=== PATIENT | female | born 2000 | race Caucasian/White ===

== ENCOUNTER 2021-11-27 09:27 | Emergency (ER) | payer OTHER, SELFPAY ==
[2021-11-27] VITALS (8 sets, daily range): BP systolic 112–125; BP diastolic 56–73; PULSE 109–136; RESP 20–26; TEMP 36.7–36.8; O2SAT 97–99; BMI 20.7
--- NOTE | 2021-11-27 09:29 | PC.NURSE ---
Seizure pads placed on bilateral bed rails.
--- NOTE | 2021-11-27 09:30 | PC.NURSE ---
Fingerstick 116
--- NOTE | 2021-11-27 09:32 | ECG_ITS ---
APPROVED REPORT Exam: Resting ECG HR:131 bpm ECG Measurements Heart Rate 131 AXES UT 144 P 75 QRSd 90 QRS 90 QT 334 T 65 QTc 411 Conclusion SINUS TACHYCARDIA NONSPECIFIC T-WAVE ABNORMALITY ABNORMAL RHYTHM ECG INTERPRETATION BASED ON A DEFAULT AGE OF 39 YEARS UNCONFIRMED REPORT Electronically signed by : Mitesh Jamison MD 11/27/2021 21:05:25
--- NOTE | 2021-11-27 09:34 | CT_ITS ---
FINAL REPORT TECHNIQUE: Thin section axial images were obtained from skull base to vertex without contrast. CLINICAL HISTORY: szr, ams FINDINGS: There is no mass effect or midline shift. There is no hydrocephalus. The ventricles are symmetric in size and configuration. There is no extra-axial or intraparenchymal hemorrhage. The posterior fossa is without acute abnormality. The basilar cisterns are preserved. The soft tissues are without acute abnormality. No acute osseous abnormality is identified. IMPRESSION: No acute intracranial abnormality. Reviewed, Interpreted and Dictated by Renata Rivers MD Transcribed by Vanna Park Authenticated and [facility]
--- NOTE | 2021-11-27 09:34 | HMH.EDSEIZ ---
ED Disposition Clinical Impression: SSRI (selective serotonin reuptake inhibitor) poisoning Qualifiers: Encounter type: initial encounter Injury intent: undetermined intent Qualified Code(s): T43.224A - Poisoning by selective serotonin reuptake inhibitors, undetermined, initial encounter Disposition: Xfer Short-Term Hosp Condition on Discharge: Good Referrals: Provider,Referral, [Primary Care Provider] - - Critical Care Critical Care Time: No Attestation: On , the high probability of a clinically significant, sudden or life threatening deterioration of the following system(s) required my full and direct attention, intervention and personal management. The time I documented below is in addition to time spent performing reported procedures but includes the following listed in this critical care notation. Medical Decision Making - Medical Records Medical records reviewed: Yes: I reviewed the patient's medical records. - Kale Inquiry Pt receiving controlled substance: No Vital Signs: 11/27/21 09:30 11/27/21 09:55 11/27/21 10:25 Temperature 98.2 F Temperature Source Oral Pulse Rate 126 H 122 H Pulse Rate [Left Radial] 136 H Respiratory Rate 21 26 H 24 Blood Pressure 117/56 L 117/63 Blood Pressure [Right Arm] 124/70 Blood Pressure Mean 78 73 Blood Pressure Mean [Right Arm] 88 02 Sat by Pulse Oximetry 97 97 97 Oxygen Delivery Method Room Air 11/27/21 10:55 11/27/21 11:26 11/27/21 11:55 Temperature Temperature Source Pulse Rate 118 H 109 H 124 H Pulse Rate [Left Radial] Respiratory Rate 20 Blood Pressure 112/73 121/71 125/72 Blood Pressure [Right Arm] Blood Pressure Mean 83 87 84 Blood Pressure Mean [Right Arm] 02 Sat by Pulse Oximetry 98 99 97 Oxygen Delivery Method 11/27/21 12:25 Temperature Temperature Source Pulse Rate 121 H Pulse Rate [Left Radial] Respiratory Rate Blood Pressure 123/69 Blood Pressure [Right Arm] Blood Pressure Mean 87 Blood Pressure Mean [Right Arm] 02 Sat by Pulse Oximetry 98 Oxygen Delivery Method Room Air - Lab Data Lab Results 11/27/21 09:27: WBC 13.5 H, RBC 4.42, Hgb 15.1, Hct 47.7 H, MCV 107.8 H, MCH 34.2 H, MCHC 31.7 L, RDW 13.6, Plt Count 319, MPV 8.9, Neut % (Auto) 68.7, Lymph % (Auto) 22.4, [place] % (Auto) 7.7, Eos % (Auto) 0.3, Baso % (Auto) 0.9, Neut # (Auto) 9.3 H, Lymph # (Auto) 3.0, [place] # (Auto) 1.0, Eos # (Auto) 0.0, Baso # (Auto) 0.1 11/27/21 09:27: Sodium 145, Potassium 3.4 L, Chloride 109 H, Carbon Dioxide 14 L, Anion Gap 25.4 H, BUN 12, Creatinine 0.90, Estimated GFR 78, Est GFR ( Amer) 95, Glucose 135 H, Calcium 9.1, Total Bilirubin 0.4, AST 34, ALT 28, Alkaline Phosphatase 82, Total Protein 7.9, Albumin 4.8, Globulin 3.1, Albumin/Globulin Ratio 1.5, Salicylates < 1.0 L, Acetaminophen < 10 L 11/27/21 09:27: Plasma/Serum Alcohol 62 H 11/27/21 09:27: Serum HCG, Qual Negative 11/27/21 10:10: Lactate 9.5 H 11/27/21 10:42: Specimen Source Left radial, O2 % Room air, ABG pH 7.45, ABG pCO2 18.7 L, ABG pO2 169.1 H, ABG HCO3 12.7 L, ABG Total CO2 13.3 L, ABG O2 Saturation 99, ABG Base Excess -11.2 L, Edmundo Test Acceptable Result diagrams: 11/27/21 09:27 11/27/21 09:27 Orders (Tests/Meds): ED MEDICATIONS Generic Name Dose Route Start Last Admin Trade Name Freq PRN Reason Stop Dose Admin Sodium Chloride 10 ml 11/27/21 12:51 Sodium Chloride 0.9% 10ml Vial IV 12/27/21 12:50 NEEDED PRN to Dilute Lorazepam inj Discontinued Medications Generic Name Dose Route Start Last Admin Trade Name Freq PRN Reason Stop Dose Admin Sodium Chloride 1,000 mls @ 999 mls/hr 11/27/21 09:45 11/27/21 09:39 Sod Chlor 0.9% 1000ml Bag IV 11/27/21 10:45 999 mls/hr .Q1H1M KEN Administration Ceftriaxone Sodium 1 gm/ 50 mls @ 100 mls/hr 11/27/21 10:00 11/27/21 10:19 Sodium Chloride IV 11/27/21 10:29 100 mls/hr ONCE ONE Administration Sodium Chloride 1,000 mls @ 999 mls/hr 11/27/21
--- NOTE | 2021-11-27 09:37 | PC.NURSE ---
Meds administered to pt per MD order. Pt provided with warm blanket and emesis bag. SO at bedside.
[2021-11-27 09:43] LABS: Basophils # 0.1 K/mm3 (0-0.2); Basophils % 0.9 % (0.1-2.0); Eosinophils % 0.3 % (0.1-12.0); Hematocrit 47.7 % (37.0-47.0); Hemoglobin 15.1 g/dL (12.2-16.2); Lymphocytes % 22.4 % (10-50); Mean Corpuscular HGB Conc 31.7 g/dL (31.8-35.4); Mean Corpuscular Hemoglobin 34.2 pg (27.0-31.2); Mean Corpuscular Volume 107.8 fl (81-99); Mean Platelet Volume 8.9 fl (7.4-10.4); Monocytes % 7.7 % (1.7-9.3); Neutrophils # 9.3 K/mm3 (1.8-7.8); Neutrophils % 68.7 % (37.0-80.0); Platelet Count 319 K/mm3 (142-424); Red Blood Count 4.42 M/mm3 (4.20-5.40); Red Cell Distribution Width 13.6 % (11.5-17.5); White Blood Count 13.5 K/mm3 (4.8-10.8)
[2021-11-27 09:48] LABS: Chloride 109 mmol/L (98-107); Potassium 3.4 mmoL/L (3.5-5.1); Sodium 145 mmol/L (136-145)
[2021-11-27 09:50] LABS: Blood Urea Nitrogen 12 mg/dl (7-17); Estimated Glomerular Filt Rate 78 ml/min (>60); GFR (African American) 95 ML/MIN (>60)
--- NOTE | 2021-11-27 09:50 | PC.NURSE ---
spoke with gilbert at poison control who states main concern is hypertension, seizures, tachycardia and airway support. states there is no antidote for medication and to observe pt for at least 24 hours post ingestion
[2021-11-27 09:51] LABS: Alanine Aminotransferase 28 U/L (12-78); Albumin Level 4.8 g/dl (3.5-5.0); Albumin/Globulin Ratio 1.5 (1.1-1.8); Alkaline Phosphatase 82 U/L (38-126); Anion Gap 25.4 mEq/L (5-15); Aspartate Amino Transferase 34 U/L (14-36); Bilirubin,Total 0.4 mg/dl (0.2-1.3); Calcium 9.1 mg/dl (8.4-10.2); Carbon Dioxide 14 mmol/L (22.0-30.0); Ethyl Alcohol 62 mg/dl (0-10); Globulin 3.1 g/dL (1.3-3.2); Glucose 135 mg/dl (74-100); Total Protein,Serum 7.9 g/dl (6.3-8.2)
[2021-11-27 09:52] LABS: Acetaminophen < 10 ug/ml (10-30); Salicylate < 1.0 mg/dL (2.0-20.0)
--- NOTE | 2021-11-27 09:54 | XR_ITS ---
FINAL REPORT CLINICAL HISTORY: sirs FINDINGS: A single PA view of the chest was obtained. There is no prior exam for comparison. The cardiac and mediastinal silhouettes are within normal limits. There evidence of granulomatous disease. Otherwise, the lungs are clear. There is no pleural effusion or pneumothorax. No acute osseous abnormality is identified. IMPRESSION: No radiographic evidence of acute cardiac or pulmonary disease on this single view of the chest. Reviewed, Interpreted and Dictated by Renata Rivers MD Transcribed by Vanna Park Authenticated and . [facility]
--- NOTE | 2021-11-27 10:20 | PC.NURSE ---
RT called and notified of abg order
--- NOTE | 2021-11-27 10:20 | PC.NURSE ---
pt placed on bedpan for urine sample
--- NOTE | 2021-11-27 10:27 | PC.NURSE ---
no success with urination. RT at the bedside for abg collection
--- NOTE | 2021-11-27 10:29 | PC.NURSE ---
RT at BS to collect ABG
--- NOTE | 2021-11-27 10:43 | HMH.ITSTN ---
SPOKE WITH STARR, UNABLE TO OBTAIN URINE FROM PATIENT FOR TEST, WILL ADD HCG SERUM TO BLOOD WORK.
--- NOTE | 2021-11-27 10:47 | PC.NURSE ---
notified lab of serum order, states approx 5 minutes until results
[2021-11-27 10:50] LABS: HCG Qualitative, Serum Negative (Negative)
[2021-11-27 10:54] LABS: Lactic Acid 9.5 mmol/L (0.7-2.1)
--- NOTE | 2021-11-27 10:54 | PC.NURSE ---
critical lab value of lactic 9.5 reported to
--- NOTE | 2021-11-27 10:55 | PC.NURSE ---
notified rad of negative preg test
--- NOTE | 2021-11-27 10:58 | PC.NURSE ---
spoke with RT about update on abg results. states they are having to re-run sample
[2021-11-27 10:59] LABS: ABG Base Excess -11.2 mmol/L (-2.4-2.3); ABG HCO3 12.7 mmhg (22.0-26.0); ABG Oxygen Saturation 99 % (90-100); ABG PH 7.45 mmol/L (7.35-7.45); ABG PO2 169.1 mmhg (80-100); ABG TCO2 13.3 mmhg (23-27)
--- NOTE | 2021-11-27 10:59 | PC.NURSE ---
pt to CT via stretcher
[2021-11-27 11:01] LABS: Allen's Test ACCEPTABLE; Oxygen ROOM AIR %; Source Left Radial
[2021-11-27 11:02] LABS: ABG PCO2 18.7 mmhg (35.0-45.0)
--- NOTE | 2021-11-27 11:04 | PC.NURSE ---
per RT pt CO2 on blood gas is 19, notified MATI ROSEN
--- NOTE | 2021-11-27 11:07 | PC.NURSE ---
pt return from CT via stretcher at this time
--- NOTE | 2021-11-27 11:31 | PC.NURSE ---
per MD request, [facility] hospitalist being contacted for phone consult
--- NOTE | 2021-11-27 11:45 | PC.NURSE ---
Dr. Anthony speaking with Dr. Trinh at this time, Hospitalist at [facility]
--- NOTE | 2021-11-27 11:52 | PC.NURSE ---
hospitalist at [facility] accepted pt to the icu
--- NOTE | 2021-11-27 12:02 | PC.NURSE ---
contacted radiology for a disc of pt images from todays visit, spoke with anel
--- NOTE | 2021-11-27 12:06 | PC.NURSE ---
speaking to pet house sitter at [facility]
--- NOTE | 2021-11-27 12:23 | PC.NURSE ---
called report to carmelina donnelly at [facility] for transfer
--- NOTE | 2021-11-27 12:42 | PC.NURSE ---
fan called now they need a covid back before transport
--- NOTE | 2021-11-27 12:44 | PC.NURSE ---
[facility] here to transport patient to [facility] ICU
[2021-11-27 12:51] LABS: Coronavirus 19, PCR Not Detected (NotDetected); Influenza A, PCR Not Detected (NotDetected); Influenza B, PCR Not Detected (NotDetected)
--- NOTE | 2021-11-27 13:09 | PC.NURSE ---
spoke with receiving nurse at [facility] and notified her transport for pt was already here d/t informing pt was clear to send. asked if i could call her with results. she states that is fine.
[2021-11-27 14:20] LABS: Reflex Lactic Add Lactic Reflex
== END 2021-11-27 13:09 | disposition short-term general hospital (02) ==
PROVIDERS: Emergency Provider Emergency Medicine
DX: T43.224A Poisoning by selective serotonin reuptake inhibitors, undetermined, initial encounter (principal)
CPT/HCPCS: 70450; 71045; 80053; 80329; 82803; 83605; 84703; 85025; 87040; 93005; 96365; 96366; 96367; 96375; 99284; C9803; J0696; J2405; U0003; U0005

== ENCOUNTER 2022-08-10 21:58 | Emergency (ER) | payer BC, SELFPAY ==
[2022-08-10 22:22] VITALS: BP 116/72; PULSE 89; RESP 14; TEMP 36.8; O2SAT 99; BMI 21.0
[2022-08-10 22:45] LABS: Basophils % 0.2 % (0.1-2.0); Eosinophils # 0.1 K/mm3 (0.0-0.4); Eosinophils % 0.9 % (0.1-12.0); Hematocrit 47.6 % (37.0-47.0); Hemoglobin 15.8 g/dL (12.2-16.2); Lymphocytes # 2.7 K/mm3 (0.7-4.5); Lymphocytes % 19.1 % (10-50); Mean Corpuscular HGB Conc 33.1 g/dL (31.8-35.4); Mean Corpuscular Hemoglobin 33.8 pg (27.0-31.2); Mean Corpuscular Volume 102.1 fl (81-99); Mean Platelet Volume 8.5 fl (7.4-10.4); Monocytes # 0.7 K/mm3 (0.1-1.0); Monocytes % 4.9 % (1.7-9.3); Neutrophils # 10.5 K/mm3 (1.8-7.8); Neutrophils % 74.8 % (37.0-80.0); Platelet Count 294 K/mm3 (142-424); Red Blood Count 4.66 M/mm3 (4.20-5.40); Red Cell Distribution Width 13.4 % (11.5-17.5)
[2022-08-10 22:48] LABS: Chloride 105 mmol/L (98-107); Sodium 139 mmol/L (136-145)
[2022-08-10 22:50] LABS: Alanine Aminotransferase 18 U/L (12-78); Aspartate Amino Transferase 25 U/L (14-36); Blood Urea Nitrogen 10 mg/dl (7-17); Creatinine Clearance Estimated 90 mL/min (50-200); Estimated Glomerular Filt Rate 89 ml/min (>60); GFR (African American) 108 ML/MIN (>60)
[2022-08-10 22:51] LABS: Albumin Level 4.7 g/dl (3.5-5.0); Albumin/Globulin Ratio 1.5 (1.1-1.8); Alkaline Phosphatase 93 U/L (38-126); Bilirubin,Total 0.5 mg/dl (0.2-1.3); Carbon Dioxide 25 mmol/L (22.0-30.0); Globulin 3.2 g/dL (1.3-3.2); Glucose 84 mg/dl (74-100); Total Protein,Serum 7.9 g/dl (6.3-8.2)
[2022-08-10 22:55] LABS: HCG Qualitative, Serum Negative (Negative)
--- NOTE | 2022-08-10 23:57 | HMH.EDNVD ---
Discharge Plan Disposition Patient Disposition: Home, Self-Care Prescriptions Prescriptions: New pantoprazole [Protonix] 40 mg tablet,delayed release (DR/EC) 40 mg PO ONCE 28 Days Qty: 28 0RF Referrals Follow up/Referrals: Provider,Referral, [Primary Care Provider] - See instructions Clinical Impressions Clinical Impression: Gastritis Instructions Patient Instructions: DI for Gastritis Discharge ED Provider: Shanti (ED)Luciano Nausea/Vomiting/Diarrhea HPI General Chief complaint: Nausea/Vomiting/Diarrhea Stated complaint: Vomitting Blood Time Seen by Provider: 08/10/22 23:57 Mode of Arrival: Ambulatory Source of Information: Patient and Medical Record Limitations: No Limitations Description of Symptoms (Recalled from ER Triage Doc. by RN): Pt reports drinking a nasty beer and throwing up blood clots at aprox 7:30pm tonight. Pt reports only 1 episode of emesis and denies any other complaints. No recent illnesses. Pt does report a miscarriage a couple weeks ago and she has been drinking heavily this week but that isn't her norm for her. Pt is well appearing and in no acute distress. History of Present Illness HPI Narrative: pt with etoh and vomiting blood and clots tonight - no sob or pain - pt reports no melena - recent miscarriage denied now MD complaint: nausea and vomiting Onset (ago): hour(s) Description of Vomiting: bloody and coffee grounds Associated Abdominal Pain: No Consistency: now resolved Related Data Previous Rx's Medication Instructions Recorded pantoprazole 40 mg tablet,delayed 40 mg PO ONCE 4 weeks #28 tabs 08/11/22 release (Protonix) Allergies Allergy/AdvReac Type Severity Reaction Status Date / Time No Known Allergies Allergy Verified 11/27/21 09:38 [facility] Disclaimer: The information contained in this section may have been updated after the patient was seen, as this information can be updated by other users. Social History Smoking Status: Current every day smoker alcohol intake: current current occupational status: employed Travel in the last 8 weeks: None ROS Obtained: Yes All systems reviewed & no additional complaints except as documented Physical Exam General General appearance: alert Head Head exam: normocephalic Eye Eye exam: Present PERRL and EOMI; Absent scleral icterus ENT ENT exam: Present mucous membranes moist Neck Neck exam: Present trachea midline; Absent tenderness Respiratory Respiratory exam: Present normal lung sounds bilaterally; Absent respiratory distress Cardiovascular Cardiovascular exam: Present regular rate; Absent systolic murmur Abdominal Exam Abdominal exam: Present soft; Absent tenderness, guarding or rebound Extremities Exam Extremities exam: Present full ROM Neurological Exam Neurological exam: Present alert, oriented X3 and CN II-XII intact; Absent motor sensory deficit Psychiatric Psychiatric exam: Present normal affect Skin Skin exam: Absent rash Medical Decision Making Medical Records Medical records reviewed: Yes I reviewed the patient's medical records. Kale Inquiry Pt receiving controlled substance: No Vital Signs: 08/10/22 22:22 Temperature 98.2 F Temperature Source Oral Pulse Rate [Right Radial] 89 Respiratory Rate 14 Blood Pressure [Right Arm] 116/72 Blood Pressure Mean [Right Arm] 86 Blood Pressure Source [Right Arm] Automatic Cuff Blood Pressure Position [Right Arm] Sitting 02 Sat by Pulse Oximetry 99 Oxygen Delivery Method Room Air Lab Data Lab results reviewed: Yes I reviewed the patient's lab results. Lab Results 08/10/22 22:35: WBC 14.0 H, RBC 4.66, Hgb 15.8, Hct 47.6 H, MCV 102.1 H, MCH 33.8 H, MCHC 33.1, RDW 13.4, Plt Count 294, MPV 8.5, Neut % (Auto) 74.8, Lymph % (Auto) 19.1, [place] % (Auto) 4.9, Eos % (Auto) 0.9, Baso % (Auto) 0.2, Neut # (Auto) 10.5 H, Lymph # (Auto) 2.7, [place] # (Auto) 0.7, Eos # (Auto) 0.1, Baso # (Auto) 0.0 08/10/22 22:35: Sodium 1
[2022-08-11 00:09] VITALS: BP 126/75; PULSE 89; RESP 16; TEMP 36.9; O2SAT 98
== END 2022-08-11 00:18 | disposition home or self-care (01) ==
PROVIDERS: Emergency Provider Emergency Medicine
DX: K29.61 Other gastritis with bleeding (principal); F17.200 Nicotine dependence, unspecified, uncomplicated
CPT/HCPCS: 80053; 84703; 85025; 96360; 96374; 99284; 99285; J2405

== ENCOUNTER 2023-03-04 13:02 | Emergency (ER) | payer BC, SELFPAY ==
[2023-03-04 13:04] VITALS: BP 139/77; PULSE 106; RESP 16; TEMP 36.8; O2SAT 98; BMI 24.4
[2023-03-04 13:11] VITALS: BMI 24.4
--- NOTE | 2023-03-04 13:12 | XR_ITS ---
FINAL REPORT CLINICAL HISTORY: injury, fell and caught self with hand FINDINGS: Left hand Three views were obtained. There is an oblique fracture of the 2nd middle phalanx with mild overlapping of fracture fragments. There is soft tissue swelling of the 2nd digit. IMPRESSION: Fracture as above. Reviewed, Interpreted and Dictated by Feliciano Duckworth III, MD Transcribed by Sade Swanson Authenticated and [facility]
--- NOTE | 2023-03-04 13:28 | HMH.EDGENADL ---
Discharge Plan Disposition Patient Disposition: Home, Self-Care Chief Complaint: Extremity Injury, Upper Prescriptions Prescriptions: No Action pantoprazole [Protonix] 40 mg tablet,delayed release (DR/EC) 40 mg PO ONCE 28 Days Qty: 28 0RF Referrals Follow up/Referrals: Venice Garcia DO [Primary Care Provider] - See instructions Trey Carroll DO [Staff Physician] - See instructions Activity Restrictions/Add. Instructions Additional Instructions/Restrictions: Call your family doctor to establish care for this visit to the emergency department and schedule follow-up within 48 hours to ensure improvement. If you have any worsening of your condition or any other concerning signs or symptoms, return to the emergency department or your primary care doctor for further evaluation. Call Dr. Carroll's office today, or tomorrow 03/05 to schedule follow-up appointment. Clinical Impressions Clinical Impression: Finger fracture, left Discharge ED Provider: Terence Wallis General Adult HPI General Chief complaint: Extremity Injury, Upper Stated complaint: [id number], pain in Lt index finger Time Seen by Provider: 03/04/23 13:06 Mode of Arrival: Ambulatory Source of Information: Patient Limitations: No Limitations Description of Symptoms (Recalled from ER Triage Doc. by RN): Presents to ED with c/o left index finger pain/swelling that began yesterday after tripping and trying to catch her self. Notable swelling and bruising o the finger. Cap refill <2sec. Patient does have feeling in the finger. Denies meds [employer] History of Present Illness HPI narrative: 23-year-old female no relevant medical history presenting with left hand injury. Patient states that she was walking about 12 hours prior to arrival, tripped, try to catch herself with her left hand. Jammed her left pointer finger. Moderate pain, swelling, bruising. She can still feel it and extend it, having difficulty bending it secondary to swelling and pain. No other trauma was sustained. Took Motrin, but it did not help much. Related Data Previous Rx's Medication Instructions Recorded pantoprazole 40 mg tablet,delayed 40 mg PO ONCE 4 weeks #28 tabs 08/11/22 release (Protonix) Allergies Allergy/AdvReac Type Severity Reaction Status Date / Time No Known Allergies Allergy Verified 11/27/21 09:38 [facility] Disclaimer: The information contained in this section may have been updated after the patient was seen, as this information can be updated by other users. Social History (Updated 08/11/22 @ 00:05 by Luciano LINN)MD) Smoking Status: Current every day smoker alcohol intake: current current occupational status: employed Travel in the last 8 weeks: None ROS Obtained: Yes All systems reviewed & no additional complaints except as documented Physical Exam General General appearance: alert and in no apparent distress Head Head exam: atraumatic and normocephalic Eye Eye exam: Present normal appearance, PERRL and EOMI ENT ENT exam: Present mucous membranes moist Neck Neck exam: Present normal inspection, full ROM and trachea midline Respiratory Respiratory exam: Absent respiratory distress, wheezes, stridor, accessory muscle use or prolonged expiratory phase Cardiovascular Cardiovascular exam: Present regular rate and normal rhythm Abdominal Exam Abdominal exam: Present soft; Absent distention, tenderness, guarding, rebound, rigidity or normal bowel sounds Extremities Exam Extremities exam: Present other (Multiple healing cuts on forearms from previous self-injurious behavior. Patient has swelling, tenderness, bruising left pointer finger. Neurovascularly intact. Minimal flexion, but full extension); Absent edema Neurological Exam Neurological exam: Present alert, oriented X3, CN II-XII intact and normal gait; Absent motor sensory deficit Skin Skin exam: Present warm and dry; Absent diaphoresis or erythema Medical Decision Making
--- NOTE | 2023-03-04 14:00 | PC.NURSE ---
@ BS with MD splinting patient.
[2023-03-04 14:37] VITALS: BP 113/78; PULSE 85; RESP 16; O2SAT 98
--- NOTE | 2023-03-04 14:41 | PC.NURSE ---
Radial Gutter splint applied by . +PMS
[2023-03-04 15:11] VITALS: BP 113/78; PULSE 85; RESP 16; TEMP 36.8; O2SAT 98
== END 2023-03-04 15:12 | disposition home or self-care (01) ==
PROVIDERS: Emergency Provider Emergency Medicine; PCP Student in an Organized Health Care Education/Training Program
DX: S62.621A Displaced fracture of middle phalanx of left index finger, initial encounter for closed fracture (principal); F17.210 Nicotine dependence, cigarettes, uncomplicated; W23.2XXA Caught, crushed, jammed or pinched between a moving and stationary object, initial encounter
CPT/HCPCS: 73130; 99283

== ENCOUNTER → 2023-04-01 13:46 | Outpatient (CLI) | payer BC, SELFPAY ==
--- NOTE | 2023-04-01 13:52 | XR_ITS ---
FINAL REPORT CLINICAL HISTORY: left hand and finger pain COMPARISON: 03/04/2023 FINDINGS: LEFT HAND Three views demonstrate a healing oblique fracture through the 2nd middle phalanx best seen on the lateral view. The visualized joint spaces are normally aligned. The soft tissues are unremarkable. IMPRESSION: Healing 2nd middle phalanx fracture. Reviewed, Interpreted and Dictated by Ty Elder MD Transcribed by Naye Pichardo Authenticated and . [facility]
== END ==
PROVIDERS: PCP Student in an Organized Health Care Education/Training Program; Visit Provider Orthopaedic Surgery
DX: S62.651A Nondisplaced fracture of middle phalanx of left index finger, initial encounter for closed fracture (principal)
CPT/HCPCS: 73130

== ENCOUNTER 2023-06-16 17:42 | Emergency (ER) | payer BC, SELFPAY ==
[2023-06-16 17:45] VITALS: BP 135/80; PULSE 90; RESP 18; TEMP 36.5; O2SAT 99; BMI 25.0
--- NOTE | 2023-06-16 17:55 | PC.NURSE ---
pt placed in hospital gown
--- NOTE | 2023-06-16 18:29 | PC.NURSE ---
DR BUCKLEY AT BEDSIDE
[2023-06-16 18:40] LABS: Microscopic, Urine URINE MICROSCOPIC (MICROSCOPIC)
[2023-06-16 18:41] LABS: Appearance,Urine CLEAR (Clear); Bilirubin,Urine Negative (Negative); Blood, Urine 2+ (Negative); Color,Urine YELLOW (Yellow); Glucose,Urine (UA) Negative (Negative); Ketones,Urine Negative (Negative); Leukocyte Esterase,Urine Negative (Negative); Nitrate,Urine Negative (Negative); Protein,Urine Negative (Negative); Specific Gravity, Urine <= 1.005 (1.005-1.030); Urobilinogen,Urine 0.2 EU/dl (0.2)
[2023-06-16 18:48] LABS: Urine Pregnancy, HCG Qual. Positive (Negative)
--- NOTE | 2023-06-16 18:58 | HMH.EDGENADL ---
Discharge Plan Disposition Patient Disposition: Home, Self-Care Prescriptions Prescriptions: No Action pantoprazole [Protonix] 40 mg tablet,delayed release (DR/EC) 40 mg PO ONCE 28 Days Qty: 28 0RF Referrals Follow up/Referrals: Shagufta Trevino DO [Staff Physician] - See instructions oGdwin Kirkpatrick [Primary Care Provider] - See instructions Activity Restrictions/Add. Instructions Additional Instructions/Restrictions: Follow-up with Dr. Trevino, information here. Discussed findings today with vaginal bleeding, positive test and low hCG at 147. Call your family doctor to establish care for this visit to the emergency department and schedule follow-up within 48 hours to ensure improvement. If you have any worsening of your condition or any other concerning signs or symptoms, return to the emergency department or your primary care doctor for further evaluation. Clinical Impressions Clinical Impression: Vaginal bleeding, Positive blood test Discharge ED Provider: Terence Wallis General Adult HPI General Chief complaint: Vaginal Bleeding Stated complaint: Heavy Menstrual Time Seen by Provider: 06/16/23 17:48 Mode of Arrival: Ambulatory Source of Information: Patient Limitations: No Limitations Description of Symptoms (Recalled from ER Triage Doc. by RN): Patient reports having a heavy menstrual cycle for 14 days. States her cycles are regular and never last this long. Patient states there are no clots it's just blood. History of Present Illness HPI narrative: 23-year-old female last menstrual period 14 days prior to this visit presenting with continued vaginal bleeding. 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 Has had difficulty getting these medications verified by insurance in the past. Does not currently follow with [facility]. Patient states that she is saturating about 3 tampons per day of dark red blood. No abdominal pain, nausea, vomiting, lightheadedness, shortness of breath, or any other concerns. Related Data Previous Rx's Medication Instructions Recorded pantoprazole 40 mg tablet,delayed 40 mg PO ONCE 4 weeks #28 tabs 08/11/22 release (Protonix) Allergies Allergy/AdvReac Type Severity Reaction Status Date / Time No Known Allergies Allergy Verified 04/01/23 14:23 [facility] Disclaimer: The information contained in this section may have been updated after the patient was seen, as this information can be updated by other users. Social History Smoking Status: Current every day smoker alcohol intake: current current occupational status: employed Travel in the last 8 weeks: None ROS Obtained: Yes All systems reviewed & no additional complaints except as documented Physical Exam General General appearance: alert and in no apparent distress Head Head exam: atraumatic and normocephalic Eye Eye exam: Present normal appearance, PERRL and EOMI ENT ENT exam: Present mucous membranes moist Neck Neck exam: Present normal inspection, full ROM and trachea midline Respiratory Respiratory exam: Absent respiratory distress, wheezes, stridor, accessory muscle use or prolonged expiratory phase Cardiovascular Cardiovascular exam: Present normal rhythm Abdominal Exam Abdominal exam: Present soft; Absent distention, tenderness, guarding, rebound or rigidity Speculum exam: Present vaginal bleeding and other (Cervical os closed) Extremities Exam Extremities exam: Absent edema Neurological Exam Neurological exam: Present alert, oriented X3, CN II-XII intact and normal gait; Absent motor sensory deficit Skin Skin exam: Present warm and dry; Absent diaphoresis or erythema Medical Decision Making Medical Records Medical records reviewed: Yes I reviewed the patient's medical records. Kale Inquiry Pt receiving controlled substance: No Kale was queried for this patient: No Vital Signs: 06/16/23 17:45 06/16/23 20:09 06/16/23 20:41 Temperature 97.7 F Temperature Source Oral Pulse Rate 67 86 Pulse Rate [Radial] 90 Respiratory Rate 18 Blood Pressure 119/68 121/69 Blood Pressure [Right Arm] 135/80 Blood Pressure Mean Blood Pressure Mean [Right Arm] 98 Blood Pressure Source [Right Arm] Automatic Cuff Blood Pressure Position [Right Arm] Sitting 02 Sat by Pulse Oximetry 99 97 99 Oxygen Delivery Method Room Air 06/16/23 21:20 06/16/23 21:40 06/16/23 22:08 Temperature 97.7 F Temperature Source Pulse Rate 69 69 67 Pulse Rate [Radial] Respiratory Rate 18 Blood Pressure 125/74 137/83 134/75 Blood Pressure [Right Arm] Blood Pressure Mean 90 101 Blood Pressure Mean [Right Arm] Blood Pressure Source [Right Arm] Blood Pressure Position [Right Arm] 02 Sat by Pulse Oximetry 98 99 Oxygen Delivery Method Lab Data Lab Results 06/16/23 17:50: Urine Color Yellow, Urine Appearance Clear, Urine pH 6.0, Ur Specific [place] <= 1.005, Urine Protein Negative, Urine Glucose (UA) Negative, Urine Ketones Negative, Urine Blood 2+, Urine Nitrate Negative, Urine Bilirubin Negative, Urine Urobilinogen 0.2, Ur Leukocyte Esterase Negative, Urine RBC 3-5, Urine WBC None, Ur Squamous Epith Cells Occasional, Urine Bacteria None, Urine HCG, Qual Positive 06/16/23 19:30: WBC 8.1, RBC 3.88 L, Hgb 14.4, Hct 39.3, MCV 101.3 H, MCH 37.2 H, MCHC 36.7 H, RDW 12.8, Plt Count 270, MPV 9.0, Neut % (Auto) 61.8, Lymph % (Auto) 30.6, [place] % (Auto) 7.0, Eos % (Auto) 0.4, Baso % (Auto) 0.3, Neut # (Auto) 5.0, Lymph # (Auto) 2.5, [place] # (Auto) 0.6, Eos # (Auto) 0.0, Baso # (Auto) 0.0, Sodium 136, Potassium 3.6, Chloride 107, Carbon Dioxide 24, Anion Gap 8.6, BUN 6 L, Creatinine 0.70, Estimated Creat Clear 114, Estimated GFR 103, Est GFR ( Amer) 124, Glucose 98, Calcium 8.8, Total Bilirubin 0.6, AST 31, ALT 26, Alkaline Phosphatase 80, Total Protein 7.2, Albumin 4.2, Globulin 3.0, Albumin/Globulin Ratio 1.4, HCG, Quant 147 H, Blood Type O Positive, Antibody Screen Negative 06/16/23 19:30 06/16/23 19:30 Orders (Tests/Meds): ORDERS Category Date Time Status Type and Screen Stat BBK 06/16/23 19:30 Completed POCUS Point of Care (ER Only) Stat Exams 06/16/23 18:32 Taken CMP [Comprehensive Metabolic Panel] Stat Lab 06/16/23 19:30 Completed Complete Blood Count Auto Diff Stat Lab 06/16/23 19:30 Completed HCG,Quantitative Stat Lab 06/16/23 19:30 Completed UA [Urinalysis and Microscopic] Stat Lab 06/16/23 17:50 Completed Urine , HCG Qual. Stat Lab 06/16/23 17:50 Completed Medical Decision Narrative: 23-year-old female last menstrual period 14 days prior to this visit presenting with continued vaginal bleeding. 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 Has had difficulty getting these medications verified by insurance in the past. Does not currently follow with [facility]. Patient states that she is saturating about 3 tampons per day of dark red blood. No abdominal pain, nausea, vomiting, lightheadedness, shortness of breath, or any other concerns. History was obtained via conversation with patient. On arrival, patient hemodynamically stable, alert, oriented x4, appropriate, GCS 15, moving all extremities spontaneously, pupils equal and reactive to light. Full physical exam performed and significant for well-appearing girl in no acute distress. No abdominal tenderness. Speculum exam with blood in the vaginal vault, cervical os is closed. Differential includes inevitable versus threatened , implantation bleeding, , among others. Workup independently interpreted and significant for a positive blood type, nonactionable CBC or chemistry. hCG elevated at 147. No evidence of UTI. It was explained to patient that ultrasound would be futile and likely not demonstrate any intrauterine findings this early with an hCG this low, but patient wanted ultrasound for peace of mind. Bedside ultrasound without any obvious intrauterine gestational sac. Mildly thickened endometrial stripe. No evidence of fibroids or free fluid in the abdomen. On reevaluation, patient resting comfortably in bed. Because patient not having abdominal cramping or any symptoms at this time, was deemed appropriate for outpatient management. Given information for [facility], she is agreeable to contacting them tomorrow, 06/17 for further follow-up. Given patient presentation, workup, history, this most likely represents vaginal bleeding in . Because patient at baseline without signs or symptoms of clinical decompensation, deemed appropriate for discharge. Results were relayed to patient who voiced understanding and were agreeable to outpatient management and follow up. At the time of discharge the patient was hemodynamically stable, tolerating PO, and mobilizing appropriately. Procedures Limited Ultrasound Indication:: Limited OB ultrasound Indication: Vaginal bleeding, positive test Identified structures: -Uterus -Left adnexa -Right adnexa -Pouch of [place] Findings: Uterus: No definitive IUP Right adnexa: -Normal Left adnexa: -Normal Cul de sac: -free fluid absent Impression: -IUP: Absent -Ectopic : Absent -Free fluid: Absent Images were saved to permanent archive The study was technically adequate CPT Transabdominal: 84227-47 This study was performed by me, and I personally interpreted all images/videos. Based on my clinical judgement, these images were adequate and did not necessitate further imaging. Critical Care Critical Care Time Critical Care Time: No
[2023-06-16 19:00] LABS: Squamous Epithelial Cell,Urine Occasional #/hpf (0-5)
--- NOTE | 2023-06-16 19:08 | PC.NURSE ---
PT AND FAMILY UPDATED, DRINK PROVIDED. CALL LIGHT WITHIN REACH
[2023-06-16 20:09] VITALS: BP 119/68; PULSE 67; O2SAT 97
[2023-06-16 20:15] LABS: Chloride 107 mmol/L (98-107); Sodium 136 mmol/L (136-145)
[2023-06-16 20:16] LABS: Potassium 3.6 mmoL/L (3.5-5.1)
[2023-06-16 20:18] LABS: Alanine Aminotransferase 26 U/L (12-78); Albumin Level 4.2 g/dl (3.5-5.0); Albumin/Globulin Ratio 1.4 (1.1-1.8); Alkaline Phosphatase 80 U/L (38-126); Anion Gap 8.6 mEq/L (5-15); Aspartate Amino Transferase 31 U/L (14-36); Bilirubin,Total 0.6 mg/dl (0.2-1.3); Blood Urea Nitrogen 6 mg/dl (7-17); Carbon Dioxide 24 mmol/L (22.0-30.0); Creatinine Clearance Estimated 114 mL/min (50-200); Estimated Glomerular Filt Rate 103 ml/min (>60); GFR (African American) 124 ML/MIN (>60); Total Protein,Serum 7.2 g/dl (6.3-8.2)
[2023-06-16 20:19] LABS: Calcium 8.8 mg/dl (8.4-10.2); Glucose 98 mg/dl (74-100)
[2023-06-16 20:33] LABS: Basophils % 0.3 % (0.1-2.0); Eosinophils % 0.4 % (0.1-12.0); Hematocrit 39.3 % (37.0-47.0); Hemoglobin 14.4 g/dL (12.2-16.2); Lymphocytes # 2.5 K/mm3 (0.7-4.5); Lymphocytes % 30.6 % (10-50); Mean Corpuscular HGB Conc 36.7 g/dL (31.8-35.4); Mean Corpuscular Hemoglobin 37.2 pg (27.0-31.2); Mean Corpuscular Volume 101.3 fl (81-99); Monocytes # 0.6 K/mm3 (0.1-1.0); Neutrophils % 61.8 % (37.0-80.0); Platelet Count 270 K/mm3 (142-424); Red Blood Count 3.88 M/mm3 (4.20-5.40); Red Cell Distribution Width 12.8 % (11.5-17.5); White Blood Count 8.1 K/mm3 (4.8-10.8)
[2023-06-16 20:40] LABS: HCG,Quantitative 147 mIU/ml (0-5.42)
[2023-06-16 20:41] VITALS: BP 121/69; PULSE 86; O2SAT 99
[2023-06-16 21:20] VITALS: BP 125/74; PULSE 69; O2SAT 98
[2023-06-16 21:40] VITALS: BP 137/83; PULSE 69; O2SAT 99
--- NOTE | 2023-06-16 21:50 | PC.NURSE ---
MD at bedside for vaginal exam
[2023-06-16 22:08] VITALS: BP 134/75; PULSE 67; RESP 18; TEMP 36.5; O2SAT 97
== END 2023-06-16 22:09 | disposition home or self-care (01) ==
PROVIDERS: Emergency Provider Emergency Medicine; PCP Family Medicine
DX: N93.9 Abnormal uterine and vaginal bleeding, unspecified (principal); Z32.01 Encounter for pregnancy test, result positive
CPT/HCPCS: 80053; 81001; 81025; 84702; 85025; 86850; 99284

== ENCOUNTER 2023-06-17 13:43 | Outpatient (CLI) | payer BC, SELFPAY ==
[2023-06-17 15:17] LABS: HCG,Quantitative 131 mIU/ml (0-5.42)
== END 2023-06-17 23:59 ==
PROVIDERS: PCP Family Medicine; Visit Provider Obstetrics & Gynecology
DX: O20.0 Threatened abortion (principal)
CPT/HCPCS: 36415; 84702; 86900; 86901

== ENCOUNTER 2023-06-23 15:52 | Outpatient (CLI) | payer BC, SELFPAY ==
[2023-06-23 17:24] LABS: HCG,Quantitative 142 mIU/ml (0-5.42)
== END 2023-06-23 23:59 ==
LOC: LAB 15:52
PROVIDERS: PCP Family Medicine; Visit Provider Obstetrics & Gynecology
DX: Z32.00 Encounter for pregnancy test, result unknown (principal)
CPT/HCPCS: 36415; 84702

== ENCOUNTER 2023-06-25 08:57 | Outpatient (CLI) | payer BC, SELFPAY ==
[2023-06-25 10:30] LABS: HCG,Quantitative 136 mIU/ml (0-5.42)
== END 2023-06-25 23:59 ==
LOC: LAB 08:57
PROVIDERS: PCP Family Medicine; Visit Provider Obstetrics & Gynecology
DX: Z34.90 Encounter for supervision of normal pregnancy, unspecified, unspecified trimester (principal)
CPT/HCPCS: 36415; 84702

== ENCOUNTER 2023-06-25 13:59 | Outpatient (CLI) | payer BC, SELFPAY ==
--- NOTE | 2023-06-25 14:02 | US_ITS ---
PROCEDURE: US TRANSVAGINAL CLINICAL INDICATION: Pos preg test,check viablility/tubal . COMPARISON: US POINT OF CARE US (ER ONLY) from 06/16/2023 FINDINGS: Transvaginal sonographic images of the pelvis were obtained. UTERUS: 6.8cm x 4.3cmx 3.5 cm with a combined endometrial thickness of 2.3mm. LEFT OVARY: 2.7 cmx1.5cmx1.4cm with a volume of 2.9ml. Small follicles in the left ovary. RIGHT OVARY: 3.5 cmx 1.6 cm. Adjacent to the right ovary there is a cystic mass measuring 2.2 cm. There is a ring of fire around this cystic mass. Possible ectopic . Both ovaries are seen and appear normal. Doppler flow to both ovaries are seen. There is no fluid in the cul-de-sac. IMPRESSION: 1. Anteverted uterus normal in shape and size. The endometrium is thin and there is no intrauterine . 2. The left ovary is seen and appears normal and has a few small follicles. 3. The right ovary is seen and appears normal. There are few small follicles in the right ovary. 4. Adjacent to the right ovary is a cystic mass measuring 2.1 cm. There is hypervascularity and a ring of fire. 5. Possible ectopic on the right side. 6. No fluid in the cul-de-sac. Dictated by: Jeremiah Dixon MD 06/25/2023 15:27 Jeremiah Dixon MD in OV 06/25/2023 15:27
== END 2023-06-25 23:59 ==
LOC: RAD 13:59
PROVIDERS: PCP Family Medicine; Visit Provider Obstetrics & Gynecology
DX: N96 Recurrent pregnancy loss (principal); Z32.01 Encounter for pregnancy test, result positive
CPT/HCPCS: 76830

== ENCOUNTER 2023-06-26 11:23 | Emergency (ER) | payer BC, SELFPAY ==
[2023-06-26 11:27] VITALS: BP 142/78; PULSE 80; RESP 18; TEMP 36.7; O2SAT 98; BMI 24.7
--- NOTE | 2023-06-26 11:36 | PC.NURSE ---
Dr. Olivier at BS for pt eval
--- NOTE | 2023-06-26 11:49 | HMH.EDGENADL ---
Discharge Plan Disposition Patient Disposition: Home, Self-Care Prescriptions Prescriptions: No Action No Known Home Medications Referrals Follow up/Referrals: Godwin Kirkpatrick [Primary Care Provider] - See instructions Activity Restrictions/Add. Instructions Additional Instructions/Restrictions: Please follow-up on Wednesday with Dr. Trevino for repeat ultrasound and labs. If new or worsening symptoms please not hesitate to return the emergency department. Clinical Impressions Clinical Impression: Ectopic Qualifiers: Location of ectopic : ovarian Intrauterine status: without intrauterine Laterality: right Qualified Code(s): O00.201 - Right ovarian without intrauterine Discharge ED Provider: Saw Olivier General Adult HPI General Chief complaint: OB/Uterine Contractions Stated complaint: ectopic , sent by Time Seen by Provider: 06/26/23 11:28 Mode of Arrival: Ambulatory Source of Information: Patient Limitations: No Limitations Description of Symptoms (Recalled from ER Triage Doc. by RN): possible ectopic History of Present Illness HPI narrative: Patient is a 23-year-old G9, P0 currently with suspected ectopic presents emergency department for evaluation. Last menstrual period was in May. She has been evaluated by Dr. Trevino where ultrasound is concerning for possible ectopic on the right side. Patient does have a history of ovarian cyst on the right side. She was offered medical management versus surgery at Dr. Trevino's office recently for which she declined. Fortunately patient has returned for continued evaluation. Patient has had intermittent abdominal pain on the left, no current abdominal pain. Related Data Home Medications Medication Instructions Recorded Confirmed No Known Home Medications 06/25/23 06/25/23 Allergies Allergy/AdvReac Type Severity Reaction Status Date / Time No Known Allergies Allergy Verified 06/25/23 15:01 [facility] Disclaimer: The information contained in this section may have been updated after the patient was seen, as this information can be updated by other users. Medical History History of recurrent miscarriages x 8, first trimester. First was age 18 No significant past medical history Surgical History History of loop electrical excision procedure (LEEP) Family History Other No significant family history Social History Smoking Status: Current every day smoker alcohol intake: current current occupational status: employed Travel in the last 8 weeks: None ROS Obtained: Yes Systems reviewed as appropriate & no additional complaints except as documented Physical Exam General General appearance: alert and in no apparent distress Head Head exam: atraumatic and normocephalic Eye Eye exam: Present PERRL ENT ENT exam: Present mucous membranes moist Neck Neck exam: Present normal inspection Chest Chest inspection: Present normal inspection and symmetric chest wall rise Respiratory Respiratory exam: Present normal lung sounds bilaterally; Absent respiratory distress Cardiovascular Cardiovascular exam: Present regular rate and normal rhythm Abdominal Exam Abdominal exam: Present soft; Absent tenderness Extremities Exam Extremities exam: Present normal inspection Neurological Exam Neurological exam: Present alert Psychiatric Psychiatric exam: Present normal affect Skin Skin exam: Present warm and dry Medical Decision Making Kale Inquiry Pt receiving controlled substance: No Vital Signs: 06/26/23 11:27 06/26/23 13:25 Temperature 98.1 F Temperature Source Oral Pulse Rate 75 Pulse Rate [Right Radial] 80 Respiratory Rate 18 Blood Pressure 114/58 L Blood Pressure [Right Arm] 142/78 H Blood Pressure Mean [Right Arm] 99 02 Sat by Pulse Oximetry 98 98 Oxygen Delivery Method Room Air Room Air Lab Data Lab Results 06/26/23 12:10: WBC 8.1, RBC 4.20, Hgb 14.6, Hct 44.3, MCV 105.4 H, MCH 34.8 H, MCHC 33.0, RDW 12.8, Plt Count 304, MPV 9.0, Neut % (Auto) 64.8, Lymph % (Auto) 25.8, [place] % (Auto) 8.6, Eos % (Auto) 0.6, Baso % (Auto) 0.3, Neut # (Auto) 5.2, Lymph # (Auto) 2.1, [place] # (Auto) 0.7, Eos # (Auto) 0.1, Baso # (Auto) 0.0, Sodium 136, Potassium 4.4, Chloride 107, Carbon Dioxide 23, Anion Gap 10.4, BUN 9, Creatinine 0.70, Estimated Creat Clear 116, Estimated GFR 103, Est GFR ( Amer) 124, Glucose 84, Calcium 8.9, Total Bilirubin 1.1, AST 44 H, ALT 29, Alkaline Phosphatase 55, Total Protein 8.2, Albumin 4.8, Globulin 3.4 H, Albumin/Globulin Ratio 1.4, HCG, Quant 110 H 06/26/23 12:10 06/26/23 12:10 Orders (Tests/Meds): ED MEDICATIONS Discontinued Medications Generic Name Dose Route Start Last Admin Trade Name Josh PRN Reason Stop Dose Admin Methotrexate 80 mg 06/26/23 12:45 06/26/23 13:00 Methotrexate Sodium 50mg/2ml Vial IM 06/26/23 12:46 80 mg ONCE ONE Administration ORDERS Category Date Time Status Type and Screen Stat BBK 06/26/23 12:10 Results POCUS Point of Care (ER Only) Stat Exams 06/26/23 11:32 Ordered CBC w/Auto Diff [Complete Blood Count Auto Diff] Stat Lab 06/26/23 12:10 Completed CMP [Comprehensive Metabolic Panel] Stat Lab 06/26/23 12:10 Completed HCG,Quantitative Stat Lab 06/26/23 12:10 Completed Medical Decision Narrative: In summary patient is a 23-year-old female with past medical history described above who presents emergency department for evaluation of suspected ectopic . Patient is hemodynamically stable nontoxic-appearing upon arrival, afebrile. Differential includes ovarian cyst, ectopic , ruptured ectopic , among others. Clinical ultrasound at bedside shows no free fluid in [place]'s pouch on the right or the subdiaphragmatic space on the left. Given vital signs with ultrasound I do not suspect that patient has ruptured ectopic at this time. Hematologic labs will be obtained. The case was discussed with OB on-call Dr. Trevino who will evaluate the patient. Quant hCG is 136. Shared decision-making discussion was had between patient and OB on-call Dr. Trevino, they will proceed with methotrexate this patient is a candidate at this time, dosing under the direction of pharmacy. Patient underwent methotrexate administration and was observed in the emergency department for approximately 30 minutes for monitoring for hypersensitivity reaction for which patient had no signs or symptoms. Given this patient is appropriate for discharge at this time we will follow-up with Dr. Trevino on an outpatient basis. Critical Care Critical Care Time Critical Care Time: No
--- NOTE | 2023-06-26 11:49 | PC.NURSE ---
DR MAYDA DIOR
--- NOTE | 2023-06-26 11:49 | PC.NURSE ---
DR SILVA SPEAKING WITH DR OHARA (OB)
--- NOTE | 2023-06-26 11:58 | PC.NURSE ---
LAB AT BEDSIDE FOR TYPE AND SCREEN
--- NOTE | 2023-06-26 12:10 | PC.NURSE ---
DR OHARA AT BEDSIDE
[2023-06-26 12:28] LABS: Basophils % 0.3 % (0.1-2.0); Eosinophils # 0.1 K/mm3 (0.0-0.4); Eosinophils % 0.6 % (0.1-12.0); Hematocrit 44.3 % (37.0-47.0); Hemoglobin 14.6 g/dL (12.2-16.2); Lymphocytes # 2.1 K/mm3 (0.7-4.5); Lymphocytes % 25.8 % (10-50); Mean Corpuscular Hemoglobin 34.8 pg (27.0-31.2); Mean Corpuscular Volume 105.4 fl (81-99); Monocytes # 0.7 K/mm3 (0.1-1.0); Monocytes % 8.6 % (1.7-9.3); Neutrophils # 5.2 K/mm3 (1.8-7.8); Neutrophils % 64.8 % (37.0-80.0); Platelet Count 304 K/mm3 (142-424); Red Cell Distribution Width 12.8 % (11.5-17.5); White Blood Count 8.1 K/mm3 (4.8-10.8)
--- NOTE | 2023-06-26 12:34 | P.CONS_ITS ---
History of Present Illness *Admission Date: 06/26/23 *Reason for visit:: Ectopic *History of present illness: Olga presents with her mom and significant other to discuss management options of suspected ectopic . She denies any pelvic cramping or bleeding. Of note, she has have several SABs, pt reports 8. She desires an evaluation for recurrent SAB. We have followed her BHCG values since 06/16: 147. 2: 131. 2: 142. 2/: 136. They have been stagnant for the last 10 days. Surgical hx: [place] teeth and LEEP Allergies: NKDA Reviewed TVUS again: IMPRESSION: 1. Anteverted uterus normal in shape and size. The endometrium is thin and there is no intrauterine . 2. The left ovary is seen and appears normal and has a few small follicles. 3. The right ovary is seen and appears normal. There are few small follicles in the right ovary. 4. Adjacent to the right ovary is a cystic mass measuring 2.1 cm. There is hypervascularity and a ring of fire. 5. Possible ectopic on the right side. 6. No fluid in the cul-de-sac. [facility] Disclaimer: The information contained in this section may have been updated after the patien jerrica was seen, as this information can be updated by other users. Medical History History of recurrent miscarriages x 8, first trimester. First was age 18 No significant past medical history Surgical History History of loop electrical excision procedure (LEEP) Family History Other No significant family history Social History Smoking Status: Current every day smoker alcohol intake: current current occupational status: employed Travel in the last 8 weeks: None Review of Systems Review of Systems Review of systems (narrative): Review of Systems Constitutional: Denies fever, chills, and sweats Eyes: Denies vision change/ pain Respiratory: Denies cough and shortness of breath Cardiovascular: Denies chest pain and lightheadedness Gastrointestinal: Denies abdominal pain. Denies nausea, vomiting. Genitourinary: Denies dysuria and incontinence Musculoskeletal: Denies shoulder pain and back pain Neurological: Denies change in speech or headaches Meds Home Medications and Allergies Home Medications Medication Instructions Recorded Confirmed Type No Known Home Medications 06/25/23 06/25/23 History New Prescriptions to Start Prescriptions: Allergies Allergy/AdvReac Type Severity Reaction Status Date / Time No Known Allergies Allergy Verified 06/25/23 15:01 Exam (Inpt) Vital signs and Labs for Last 24 Hours: Temp Pulse Resp BP Pulse Ox O2 Del Method 98.1 F 80 18 142/78 H 98 Room Air 06/26/23 11:27 06/26/23 11:27 06/26/23 11:27 06/26/23 11:27 06/26/23 11:27 06/26/23 11:27 I & O for Labs for Last 24 Hours: Intake & Output 06/23/23 06/24/23 06/25/23 06/26/23 23:59 23:59 23:59 23:59 Weight 131 lb Constitutional: no acute distress, average body habitus and cooperative HEENT Head: Present normocephalic and atraumatic ENT: Present normal exam and mucous membranes dry Neck: Present normal inspection and full ROM Respiratory: Present CTA bilaterally, normal respiratory effort, able to speak in complete sentences and symmetric chest movement; Absent accessory muscle use, prolonged expiratory phase, respiratory distress, stridor, wheezes, crackles or diminished air movement Cardiac: Present Reg Rate and Rhythm, S1/S2 and No Murmur; Absent Tachycardia or Bradycardia GI: Present soft and normal bowel sounds; Absent distention, tenderness, guarding, rebound, obturator sign or heel tap sign Rectal (female): Present deferred Extremities: Present normal inspection, full ROM and normal capillary refill; Absent tenderness, edema or calf tenderness Skin: Present intact; Absent erythema or dry Assessment and Plan *Assessment and plan (1) Ectopic : Status: Acute Qualifiers: Location of ectopic : ovarian Intrauterine status: without intrauterine Laterality: right Qualified Code(s): O00.201 - Right ovarian without intrauterine Category: Medical Code(s): O00.90 - Unspecified ectopic without intrauterine Plan Reviewed contraindications with the patient: -Patient does not have an intrauterine , there is no evidence of any immunodeficiency, she does not have anemia, she has no pulmonary disease, no active peptic ulcer disease, no hepatic or renal dysfunction, patient is not breast-feeding, she is hemodynamically stable and I do not believe her ectopic to be ruptured, and the patient is agreeable to follow-up. Her initial hCG is very low at less than 150. There is no cardiac activity detected. Her ectopic is less than 4 cm at 2 cm. The patient accepts blood transfusion. We reviewed the risks of medical management to include Hypersensitivity reaction, increased skin sensitivity, nausea and vomiting, abdominal pain and GI upset, pancytopenia's, thrombocytopenia's, renal and liver abnormalities. We screened for these prior to medication administration and we will screen for them again on Wednesday Patient will follow-up on Wednesday with a hCG blood draw in the morning and then an ultrasound. She will see me after lunch so we can review these 2 things and ensure adequate treatment success. I discussed a required second dose on wednesday. I also reviewed efficacy at 70-90% and possibly needing diagnostic lap. We discussed the risk of diagnostic lap to include injury to the surrounding structures including but not limited to the bowel, bladder, ureters, and neurovascular bundles. We discussed that removal of the ectopic with mean salpingectomy and could possibly lead to oophorectomy. We discussed the risk of bleeding and infection. The patient consented to blood transfusion. As a team the ED physician, pharmacist and I worked together to manage this pt. She had a CBC, CMP, BHCG, T&S, and gonorrhea and Chlamydia labs ordered. A dose of 50mg/m2 will be given today on D0. Dr. Olivier performed performed a bedside US that did not have any free fluid in the cul-de-sac. The pt, mom and significant other v/u of the plan. They agreed to follow up. They will return for evaluation for worsening abdominal pain, N/V, or significant vaginal bleeding. We discussed recurrent SAB workup at 12wks out. We discussed tobacco cessation.
[2023-06-26 12:41] LABS: Chloride 107 mmol/L (98-107)
[2023-06-26 12:42] LABS: Sodium 136 mmol/L (136-145)
[2023-06-26 12:45] LABS: Alanine Aminotransferase 29 U/L (12-78); Albumin Level 4.8 g/dl (3.5-5.0); Albumin/Globulin Ratio 1.4 (1.1-1.8); Alkaline Phosphatase 55 U/L (38-126); Aspartate Amino Transferase 44 U/L (14-36); Bilirubin,Total 1.1 mg/dl (0.2-1.3); Blood Urea Nitrogen 9 mg/dl (7-17); Calcium 8.9 mg/dl (8.4-10.2); Carbon Dioxide 23 mmol/L (22.0-30.0); Creatinine Clearance Estimated 116 mL/min (50-200); Estimated Glomerular Filt Rate 103 ml/min (>60); GFR (African American) 124 ML/MIN (>60); Globulin 3.4 g/dL (1.3-3.2); Glucose 84 mg/dl (74-100); Total Protein,Serum 8.2 g/dl (6.3-8.2)
[2023-06-26 12:51] LABS: Anion Gap 10.4 mEq/L (5-15); Potassium 4.4 mmoL/L (3.5-5.1)
[2023-06-26 13:02] LABS: HCG,Quantitative 110 mIU/ml (0-5.42)
--- NOTE | 2023-06-26 13:03 | PC.NURSE ---
Methatrexate given to pt @ 1300 and will watch for 30 min.
[2023-06-26 13:25] VITALS: BP 114/58; PULSE 75; O2SAT 98
--- NOTE | 2023-06-26 13:25 | PC.NURSE ---
Rounded on pt. No needs voiced at this time. Call light within reach.
--- NOTE | 2023-06-26 13:35 | PC.NURSE ---
DR SILVA AT BEDSIDE TO REEVALUATE PT
[2023-06-26 13:43] VITALS: BP 109/73; PULSE 76; RESP 16; TEMP 36.8; O2SAT 100
[2023-06-29 05:16] LABS: Neisseria gonorrhoeae, NAA Negative (Negative)
== END 2023-06-26 13:45 | disposition home or self-care (01) ==
PROVIDERS: Emergency Provider Emergency Medicine; PCP Family Medicine
DX: O00.201 Right ovarian pregnancy without intrauterine pregnancy (principal); F17.200 Nicotine dependence, unspecified, uncomplicated
CPT/HCPCS: 80053; 84702; 85025; 86850; 87491; 87591; 96372; 99285; J9250

== ENCOUNTER 2023-06-30 07:05 | Outpatient (CLI) | payer BC, SELFPAY ==
--- NOTE | 2023-06-30 07:06 | US_ITS ---
PROCEDURE: US TRANSVAGINAL CLINICAL INDICATION: Right ectopic COMPARISON: US US TRANSVAGINAL from 06/25/2023 FINDINGS: Transvaginal sonographic images of the pelvis were obtained. UTERUS: 7.0cm x 3.9 cmx 2.8 cm anteverted with a combined endometrial thickness of 2.4mm. There is no intrauterine . LEFT OVARY: 2.9 cmx1.8 cmx1.7cm with a volume of 4.6ml. The left ovary has a polycystic appearance. RIGHT OVARY: 3.0cmx 2.2cmx2.1cm with a volume of 7.4ml. There is a solid/cystic area superior to the right ovary measuring 2.2 cm in length. The solid area measures 1.9 cm and has a typical ring of fire consistent with an ectopic . The cystic area measures 2.2 cm. It appears to be about the same size as her previous ultrasound 5 days ago. There are multiple small follicles. Both ovaries are seen and appear normal. Doppler flow to both ovaries are seen. There is no fluid in the cul-de-sac. IMPRESSION: 1. Anteverted uterus normal in shape and size. The endometrium is thin. There is no intrauterine . 2. The right ovary is seen and appears normal. It has a polycystic appearance. 3. Superior to the right ovary is a solid/cystic mass consistent with an ectopic . The solid component is 1.9 cm and the cystic component is 2.2 cm. There has been no appreciable growth in these 2 areas. 4. There is a typical ring of fire around the solid component. 5. Left ovary appears polycystic. 6. No fluid in the cul-de-sac. Dictated by: Jeremiah Dixon MD 06/30/2023 10:45 Jeremiah Dixon MD in [facility] 06/30/2023 10:45
[2023-06-30 07:40] LABS: Basophils % 0.3 % (0.1-2.0); Eosinophils # 0.2 K/mm3 (0.0-0.4); Eosinophils % 1.5 % (0.1-12.0); Hematocrit 41.7 % (37.0-47.0); Hemoglobin 13.5 g/dL (12.2-16.2); Lymphocytes # 3.6 K/mm3 (0.7-4.5); Lymphocytes % 31.8 % (10-50); Mean Corpuscular HGB Conc 32.3 g/dL (31.8-35.4); Mean Corpuscular Hemoglobin 34.1 pg (27.0-31.2); Mean Corpuscular Volume 105.6 fl (81-99); Mean Platelet Volume 8.2 fl (7.4-10.4); Monocytes # 0.5 K/mm3 (0.1-1.0); Neutrophils % 62.4 % (37.0-80.0); Platelet Count 285 K/mm3 (142-424); Red Blood Count 3.95 M/mm3 (4.20-5.40); Red Cell Distribution Width 12.5 % (11.5-17.5); White Blood Count 11.3 K/mm3 (4.8-10.8)
[2023-06-30 09:11] LABS: Chloride 109 mmol/L (98-107); Sodium 137 mmol/L (136-145)
[2023-06-30 09:12] LABS: Potassium 4.1 mmoL/L (3.5-5.1)
[2023-06-30 09:14] LABS: Alanine Aminotransferase 25 U/L (12-78); Albumin Level 4.1 g/dl (3.5-5.0); Albumin/Globulin Ratio 1.6 (1.1-1.8); Alkaline Phosphatase 93 U/L (38-126); Anion Gap 10.1 mEq/L (5-15); Aspartate Amino Transferase 25 U/L (14-36); Bilirubin,Total 0.3 mg/dl (0.2-1.3); Blood Urea Nitrogen 10 mg/dl (7-17); Calcium 8.9 mg/dl (8.4-10.2); Carbon Dioxide 22 mmol/L (22.0-30.0); Estimated Glomerular Filt Rate 77 ml/min (>60); GFR (African American) 93 ML/MIN (>60); Globulin 2.5 g/dL (1.3-3.2); Glucose 85 mg/dl (74-100); Total Protein,Serum 6.6 g/dl (6.3-8.2)
[2023-06-30 09:30] LABS: HCG,Quantitative 144 mIU/ml (0-5.42)
[2023-06-30 11:35] VITALS: BP 124/76; PULSE 72; RESP 18; TEMP 37.2; O2SAT 100
== END 2023-06-30 11:45 | disposition home or self-care (01) ==
LOC: RAD 11:10 → INF 11:10
PROVIDERS: Obstetrics & Gynecology; PCP Family Medicine; Visit Provider Obstetrics & Gynecology
DX: O00.90 Unspecified ectopic pregnancy without intrauterine pregnancy (principal)
CPT/HCPCS: 36415; 76830; 80053; 84702; 85025; 96372; J9250

== ENCOUNTER 2023-07-02 12:24 | Outpatient (CLI) | payer BC, SELFPAY ==
[2023-07-02 13:39] LABS: HCG,Quantitative 93 mIU/ml (0-5.42)
== END 2023-07-02 23:59 ==
LOC: LAB 12:25
PROVIDERS: PCP Family Medicine; Visit Provider Obstetrics & Gynecology
DX: O00.201 Right ovarian pregnancy without intrauterine pregnancy (principal)
CPT/HCPCS: 36415; 84702

== ENCOUNTER 2023-07-06 13:24 | Outpatient (CLI) | payer BC, SELFPAY ==
[2023-07-06 14:39] LABS: HCG,Quantitative 24 mIU/ml (0-5.42)
== END 2023-07-06 23:59 ==
LOC: LAB 13:26
PROVIDERS: PCP Family Medicine; Visit Provider Obstetrics & Gynecology
DX: O00.201 Right ovarian pregnancy without intrauterine pregnancy (principal)
CPT/HCPCS: 36415; 84702

== ENCOUNTER 2023-07-15 11:34 | Outpatient (CLI) | payer BC, SELFPAY ==
[2023-07-15 12:52] LABS: HCG,Quantitative < 2 mIU/ml (0-5.42)
== END 2023-07-15 23:59 ==
LOC: LAB 11:35
PROVIDERS: Obstetrics & Gynecology; PCP Family Medicine; Visit Provider Obstetrics & Gynecology
DX: Z32.01 Encounter for pregnancy test, result positive (principal); N96 Recurrent pregnancy loss
CPT/HCPCS: 36415; 84702